=== PATIENT | female | born 1960 | race Caucasian/White ===

== ENCOUNTER 2020-07-07 12:05 | Outpatient (CLI) | payer OTHER, SELFPAY ==
--- NOTE | ~2020-07-07 | MM_ITS ---
EXAMINATION: MM scrn giuliano implant BI w cecilia HISTORY: Screening mammogram TECHNIQUE: Craniocaudal and mediolateral oblique 3-D tomosynthesis images with implant displacement a nd synthetic 2-D images were generated. Craniocaudal and mediolateral oblique views of the breasts wi thout implant displacement were obtained using full field digital mammography. CAD analysis was submi tted and interpreted. COMPARISON: Comparison to multiple prior studies sequentially, with oldest reviewed study dated 03/22. BREAST PARENCHYMAL COMPOSITION: There are scattered areas of fibroglandular density. FINDINGS: There are subpectoral breast implants. There is no evidence of suspicious mass, calcificati on, or architectural distortion to suggest malignancy in either breast. There has been no suspicious interval change. IMPRESSION: 1. No mammographic evidence of malignancy. 2. Recommend routine screening mammography in one year. BI-RADS Category 1: Negative Reviewed, dictated and finalized at location [facility]
== END 2020-07-07 12:06 | disposition home or self-care (01) ==
LOC: ANHIMG 12:09
PROVIDERS: PCP Family Medicine; Visit Provider Family Medicine
DX: Z12.31 Encounter for screening mammogram for malignant neoplasm of breast (principal)
CPT/HCPCS: 77063; 77067

== ENCOUNTER 2021-09-22 15:23 | Observation (INO) | payer OTHER, SELFPAY ==
[2021-09-22] VITALS (29 sets, daily range): BP systolic 114–143; BP diastolic 76–97; PULSE 87–128; RESP 8–24; TEMP 36.1–36.8; O2SAT 91–100; BMI 28.8
--- NOTE | 2021-09-22 15:47 | ECG_ITS ---
Measurements Intervals [place] Rate: 116 P: 63 NE: 164 QRS: 39 QRSD: 94 T: 54 QT: 321 QTc: 447 Interpretive Statements SINUS TACHYCARDIA POSSIBLE LEFT ATRIAL ENLARGEMENT ST-T WAVE ABNORMALITY IN ANTEROLAT/INF LEADS- CONSIDER ISCHEMIA ABNORMAL ECG Electronically Signed On 09-22-2021 16:19:01 CDT by Rajesh Diane D.O.
[2021-09-22 15:58] LABS: Basophils Percent Auto 0.3 % (0.2-1.2); Eosinophils Absolute Auto 0.1 K/mm3 (0-0.3); Eosinophils Percent Auto 1.8 % (0-4.4); Hematocrit 48.3 % (37.0-47.0); Hemoglobin 17.6 g/dL (12.0-15.0); Immature Granulocyte Absolute 0.02 K/mm3 (0.00-0.031); Immature Granulocyte Percent A 0.3 % (0-0.5); Lymphocytes Absolute Auto 3.36 K/mm3 (0.9-3.2); Lymphocytes Percent Auto 45.8 % (18.3-44.2); Mean Corpuscular HGB Conc 36.4 g/dl (32-36); Mean Corpuscular Hemoglobin 32.4 pg (26-34); Mean Corpuscular Volume 88.8 fl (80-100); Monocytes Absolute Auto 0.7 K/mm3 (0.1-0.6); Monocytes Percent Auto 10.1 % (2.6-8.5); Neutrophils Absolute Auto 3.1 K/mm3 (1.3-6.7); Neutrophils Percent Auto 41.7 % (45.5-73.1); Platelet Count Result 292 k/mm3 (150-375); Red Blood Count 5.44 M/mm3 (4.2-5.4); Red Cell Distribution Width 12.4 % (11.5-14.5); White Blood Count 7.3 K/mm3 (4.5-10.0)
[2021-09-22 16:14] LABS: Alanine Aminotransferase 39 U/L (4-35); Albumin Level 5.6 g/dL (3.5-5.1); Alkaline Phosphatase 63 U/L (38-126); Anion Gap 17 mmol/L (8-16); Aspartate Amino Transferase 51 U/L (14-36); Bilirubin,Total 0.7 mg/dL (0.2-1.3); Blood Urea Nitrogen 33 mg/dL (7-17); Carbon Dioxide 22 mmol/L (22-30); Chloride 97 mmol/L (98-107); Estimated CRCL calculation 62 ml/min; Estimated Glomerular Filt Rate 56; Glucose 139 mg/dL (65-110); Lipase 39 U/L (23-300); Potassium 2.8 mmol/L (3.4-5.0); Sodium 136 mmol/L (137-145)
--- NOTE | 2021-09-22 17:08 | ED.NAVMDI ---
HPI - Nausea/Vomiting/Diarrhea General Chief complaint: Nausea/Vomiting/Diarrhea Stated complaint: stomach flu Time Seen by Provider: 09/22/21 16:49 History of Present Illness HPI Narrative: 60-year-old female with a history of nonischemic cardiomyopathy (on Coreg, follows with [facility]), HTN, here for evaluation of nausea, vomiting, diarrhea for the past 3 days. Patient states her daughter has the same symptoms. She states she is unable to tolerate any p.o. including her medications for the past 3 days, and reports vomiting yellow emesis after every p.o. trial. She denies blood in her vomit or stool. She is also reporting some intermittent epigastric discomfort and cramping, improved after vomiting. No recent antibiotic use. Denies syncope, lightheadedness, fevers, chills. Related Data Allergies Allergy/AdvReac Type Severity Reaction Status Date / Time hydrochlorothiazide [Dyazide] Allergy Unknown Skin Verified 04/08/21 13:46 Reaction minocycline Allergy Unknown Unknown Verified 04/08/21 13:46 Penicillins Allergy Unknown allergy Verified 04/08/21 13:46 Sulfa (Sulfonamide Allergy Unknown Unknown Verified 04/08/21 13:46 Antibiotics) triamterene Allergy Unknown Skin Verified 04/08/21 13:46 Reaction Review of Systems Review of Systems: Gen: Denies fevers or chills Eyes: Denies eye pain or visual change ENT: Denies congestion Respiratory: Denies shortness of breath or cough CV: Denies chest pain or palpitations GI: Reports abdominal pain nausea, emesis and diarrhea : denies burning, urgency, frequency or hematuria Musculoskeletal: Denies back pain or muscle pain Neuro: Denies numbness, tingling, weakness or focal weakness Skin: Denies rash Except as documented, all other systems reviewed and negative All systems reviewed & are unremarkable except as noted in HPI and below [facility] Past Medical History Medical History Obesity (BMI 30.0-34.9) Ventricular hypertrophy Surgical History Surgical History H/O bilateral breast implants (~2004) H/O: hysterectomy (~1998) S/P cholecystectomy (~1986) Family History Family History Sibling Diabetes mellitus Father Patient's father is Other Family history of mental disorder Social History Social History Smoking status: Former smoker Alcohol intake: current Drinks per week: 2 Substance use: never Spiritual care concerns: No Exam Narrative: APPEARANCE: Uncomfortable appearing. Head: normocephalic and atraumatic. EYES: PERRLA/EOMI, conjunctivae clear NOSE: No nasal drainage EARS: External ear normal in appearance THROAT: Oropharynx is clear. Mucous membranes are moist. NECK: Supple. No adenopathy, no masses. RESPIRATORY: Airway patent, respirations nonlabored. Clear to auscultation bilaterally, no rales, rhonchi, wheezing. CARDIOVASCULAR: Regular rate and rhythm without murmurs, rubs, or gallops. ABDOMINAL: Normoactive bowel sounds. Soft, nontender, nondistended. No rebound tenderness or guarding. MUSCULOSKELETAL: Extremities are warm and well-perfused. Moves all extremities well. No edema. NEURO: Normal speech. No focal neurologic deficits. SKIN: Skin is warm and dry. No rashes. PSYCHIATRIC: Normal affect/mood. Course Course Emergency Course: Spoke with Dr. Cuenca, patient's PCP, who agrees with plan for admission. Patient rechecked, feeling much better, requesting ice chips. Updated on status. Vital Signs Vital signs: Vital Signs Temperature 97.5 F L 09/22/21 15:44 Pulse Rate 128 H 09/22/21 15:44 Respiratory Rate 20 09/22/21 15:44 Blood Pressure 123/87 09/22/21 15:44 Pulse Oximetry 94 09/22/21 15:44 Temperature 97 F L 09/22/21 22:49 Pulse Rate 89
[2021-09-22] MEDS: ONDANSETRON INJ 4 MG/2 ML VIAL IV PUSH (17:42)
[2021-09-22] MEDS: POTASSIUM CHLORIDE INJ 40 MEQ in SODIUM CHLORIDE 0.9% IV 500 ML 130 MEQ IVPB (18:01)
[2021-09-22 18:35] LABS: Appearance Urine Slightly Cloudy (Clear); Bilirubin Urine 1+ (Negative); Blood Urine Trace-lysed (Negative); Color Urine Yellow (Yellow); Glucose Urine UA Negative (Negative); Ketones Urine Negative (Negative); Leukocyte Esterase Ur Negative LEU/UL (Negative); Nitrate Urine Negative (Negative); Protein Urine 3+ mg/dL (Negative); Specific Grav Ur >= 1.030 (1.001-1.035); Urobilinogen Urine 0.2 mg/dL (<2.0)
[2021-09-22 18:40] LABS: Mucus Urine Moderate /lpf; Squamous Epithelial Cell Urine Few /hpf (Few)
[2021-09-22 18:44] LABS: Add Urine Microscopic? YES
[2021-09-22 19:12] LABS: SARS-CoV-2 RNA PCR Negative
[2021-09-22 19:35] LABS: Magnesium 2.1 mg/dL (1.6-2.3)
--- NOTE | 2021-09-22 20:32 | PM.IMHP ---
H&P: HPI History of Present Illness Date/Time: 09/22/21 20:32 Chief Complaint: Nausea vomiting diarrhea Narrative: This is a 60-year-old female with past medical history significant for hypertension, hypothyroidism, nonischemic cardiomyopathy. Patient presents to the emergency room due to intractable, nausea, vomiting, diarrhea for about a week or so according to patient her daughter hearted earlier on and believes does how she got it. Patient denies any fevers, chills, rigors, cough, sputum production, shortness of breath, chest pain, PND, orthopnea, leg swelling, calves pain, she feels fatigue and she has not been able to eat in the last few days or so has not been able to keep anything down. Preliminary workup was significant for a potassium of 2.8. Patient has been admitted for further evaluation management and treatment.. Review of Systems Review of Systems: Nausea, vomiting, diarrhea. Constitutional: Constitutional: Denies chills, Denies fatigue, Denies fever(s), Reports lethargy, Denies malaise, Denies night sweats and Reports weakness Eyes: Eyes: Denies change in vision ENT: Denies dysphagia, Denies vertigo, Denies nasal congestion, Denies nasal discharge and Denies nasal obstruction Cardiovascular: Cardiovascular: Denies pedal edema, Denies leg edema, Denies radiating jaw, neck or arm pain, Denies palpitations and Denies dyspnea on exertion Respiratory: Respiratory: Denies cough, Denies excessive phlegm production and Denies dyspnea Gastrointestinal: Gastrointestinal: Denies abdominal pain, Denies dyspepsia, Denies heartburn, Reports diarrhea, Reports nausea and Reports vomiting Genitourinary: Genitourinary: Denies dysuria Musculoskeletal: Musculoskeletal: Denies back pain, Denies arthralgias, Denies joint swelling and Denies muscle weakness Integumentary/Breasts: Skin/Breast: Denies rash Neurologic: Denies focal weakness and Denies Sensory deficit (Neuro) Psychiatric: Psychiatric: Reports no additional psychiatric complaints and Reports as per HPI Endocrine: Endocrine: Denies cold intolerance, Denies fatigue, Denies flushing, Denies heat intolerance, Denies polyphagia, Denies polydipsia and Denies palpitations Hematologic/Lymphatic: Hematologic/Lymphatic: Reports no additional hematologic/lymphatic complaints and Reports as per HPI Allergic/Immunologic: Allergic/Immunologic: Reports no additional allergic/immunologic complaints and Reports as per HPI [facility] Past Medical History Medical History Obesity (BMI 30.0-34.9) Ventricular hypertrophy Surgical History Surgical History H/O bilateral breast implants (~2004) H/O: hysterectomy (~1998) S/P cholecystectomy (~1986) Family History Family History Sibling Diabetes mellitus Father Patient's father is Other Family history of mental disorder Social History Social History Smoking status: Former smoker Alcohol intake: current Drinks per week: 2 Substance use: never Spiritual care concerns: No Meds Home Medications and Allergies Home Medications Medication Instructions Recorded Confirmed Type indapamide 1.25 mg tablet 1.25 mg PO BID #180 tablet 09/17/20 09/22/21 Rx levothyroxine 125 mcg tablet See Rx Instructions .ROUTE 06/20/21 09/22/21 Rx .COMPLEX #90 tablet carvedilol phosphate 80 mg See Rx Instructions .ROUTE 07/05/21 09/22/21 Rx capsule,[id number] multiphase .COMPLEX #90 cap telmisartan 40 mg tablet 40 mg PO DAILY #90 tablet 07/11/21 09/22/21 Rx fluoxetine 20 mg/5 mL (4 mg/mL) See Rx Instructions .ROUTE 09/12/21 09/22/21 Rx oral solution .COMPLEX #450 ml Allergies Allergy/AdvReac Type Severity Reaction Status Date / Time hydrochlorothiazide [Dyazide] Allergy
[2021-09-22] MEDS: SODIUM CHLORIDE 0.9% IV 1,000 ML 150 ML IV CONT (21:31)
--- NOTE | 2021-09-22 22:49 | ADMGEN ---
This patient, Pinky Mayo, was admitted to 2 Medical Room 260-01. Patient/family oriented to hospital policies and general routines including ID bracelet, bed and alarms, visiting hours, pain management, procedures, bathroom and other care routines, personal items, smoking policy, room service/diet, and visiting hours. Information on how to activate the Rapid Response Team has been discussed. Patient/Family are encouraged to report perceived risks to care and to ask questions if they do not understand what they are told or what they should do.
[2021-09-23] VITALS: PULSE 89
[2021-09-23 04:00] VITALS: PULSE 84
[2021-09-23 04:08] VITALS: BP 104/66; PULSE 84; RESP 18; TEMP 36.9; O2SAT 97
[2021-09-23 08:00] VITALS: PULSE 87
--- NOTE | 2021-09-23 08:41 | PM.DS ---
DS: Admitting Diagnosis Discharge Date 09/23/2021 Admitting Diagnosis Nausea vomiting diarrhea DS: Discharge Diagnosis Discharge Diagnosis (1) Hypokalemia: Code(s): E87.6 - Hypokalemia Status: Acute Assessment and Plan: Most likely related to diarrhea secondary to gastroenteritis placed follow-up with PCP in 1 week repeat CMP in 1 week as outpatient (2) Essential (primary) hypertension: Code(s): I10 - Essential (primary) hypertension Status: Acute Assessment and Plan: Resume home medication as tolerated (3) Intractable nausea and vomiting: Code(s): R11.2 - Nausea with vomiting, unspecified Status: Acute Assessment and Plan: Most likely related to gastroenteritis most likely viral resolved advance diet as tolerated follow-up with PCP encourage oral hydration (4) Diarrhea: Code(s): R19.7 - Diarrhea, unspecified Status: Acute Assessment and Plan: Supportive care as above (5) Ventricular hypertrophy: Code(s): I51.7 - Cardiomegaly Status: Acute Assessment and Plan: Stable Continue to monitor DS: Summary Hospital Course Hospital Course: 60 years old female with past medical history of hypertension nonischemic cardiomyopathy presented to the hospital with nausea vomiting diarrhea started 1 week ago patient was found to have acute probably viral gastroenteritis associated with hypo kalemia and dehydration treated with IV fluid potassium was replaced also UA was done shows leukocytosis microscopic hematuria most likely related to dehydration patient denies any symptom for UTI follow-up with PCP follow up on the results of final culture Time Spent with Patient Time attestation: Total time spent providing and/or coordinating discharge services: 25 minutes Exam Narrative: Alert Chest no wheeze crackles Abdomen nontender nondistended CVS S1 + S2 Lower extremity edema DS: Data Data Completed and Pending Labs on day of discharge: Labs from last 24 hours 09/22/21 09/22/21 09/22/21 18:03 18:03 15:49 WBC RBC Hgb Hct MCV MCH MCHC RDW Plt Count MPV Immature Gran % (Auto) Neut % (Auto) Lymph % (Auto) Ransom % (Auto) Eos % (Auto) Baso % (Auto) Lymph # (Auto) [place]ansom # (Auto) Eos # (Auto) Baso # (Auto) Abs Immat Gran (auto) Absolute Neuts (auto) Absolute Nucleated RBC Nucleated RBC % Sodium Potassium Chloride Carbon Dioxide Anion Gap BUN Creatinine Estim Creat Clear Calc Estimated GFR Glucose Calcium Magnesium 2.1 Total Bilirubin AST ALT Alkaline Phosphatase Total Protein Albumin Lipase Urine Color Yellow Urine Appearance Slightly cloudy Urine pH 6.0 Ur Specific [place] >= 1.030 Urine Protein 3+ H Urine Glucose (UA) Negative Urine Ketones Negative Ur Blood (Man) Trace-lysed Urine Nitrate Negative Urine Bilirubin 1+ H Urine Urobilinogen 0.2 Leukocyte Esterase Rfl Negative Urine RBC 3-5 H Urine WBC 10-15 H Ur Squamous Epith Cells Few Hyaline Casts 10-14 H Urine Mucus Moderate H SARS-CoV-2 RNA (RT-PCR) Negative 09/22/21 09/22/21 15:49 15:49 WBC 7.3 RBC 5.44 H Hgb 17.6 H Hct 48.3 H MCV 88.8 MCH 32.4 MCHC 36.4 H RDW 12.4 Plt Count 292 MPV 9.0 Immature Gran % (Auto) 0.3 Neut % (Auto) 41.7 L Lymph % (Auto) 45.8 H Ransom % (Auto) 10.1 H Eos % (Auto) 1.8 Baso % (Auto) 0.3 Lymph # (Auto) 3.36 H [place] # (Auto) 0.7 H Eos # (Auto) 0.1 Baso # (Auto) 0.0 Abs Immat Gran (auto) 0.02 Absolute Neuts (auto) 3.1 Absolute Nucleated RBC 0.0 Nucleated RBC % 0.0 Sodium 136 L Potassium 2.8 L* Chloride 97 L Carbon Dioxide 22 Anion Gap 17 H BUN 33 H Creatinine 1.00 Estim Creat Clear Calc 62 Estimated GFR 56 L Glucose 139 H Calcium 9.0 Magnesium Total Bi
[2021-09-23 08:43] VITALS: BP 118/75; PULSE 84; RESP 16; TEMP 36.5; O2SAT 92
[2021-09-23 08:56] LABS: Basophils Percent Auto 0.3 % (0.2-1.2); Eosinophils Percent Auto 0.1 % (0-4.4); Hematocrit 44.6 % (37.0-47.0); Hemoglobin 15.8 g/dL (12.0-15.0); Immature Granulocyte Absolute 0.01 K/mm3 (0.00-0.031); Immature Granulocyte Percent A 0.1 % (0-0.5); Lymphocytes Absolute Auto 4.04 K/mm3 (0.9-3.2); Lymphocytes Percent Auto 56.4 % (18.3-44.2); Mean Corpuscular HGB Conc 35.4 g/dl (32-36); Mean Corpuscular Volume 90.5 fl (80-100); Monocytes Absolute Auto 0.7 K/mm3 (0.1-0.6); Monocytes Percent Auto 9.9 % (2.6-8.5); Neutrophils Absolute Auto 2.4 K/mm3 (1.3-6.7); Neutrophils Percent Auto 33.2 % (45.5-73.1); Platelet Count Result 247 k/mm3 (150-375); Red Blood Count 4.93 M/mm3 (4.2-5.4); Red Cell Distribution Width 12.6 % (11.5-14.5); White Blood Count 7.2 K/mm3 (4.5-10.0)
[2021-09-23] MEDS: POTASSIUM CHLORIDE 20 MEQ TABLET 40 MEQ PO (08:57)
[2021-09-23 09:12] LABS: Alanine Aminotransferase 32 U/L (4-35); Albumin Level 4.7 g/dL (3.5-5.1); Alkaline Phosphatase 50 U/L (38-126); Anion Gap 11 mmol/L (8-16); Aspartate Amino Transferase 37 U/L (14-36); Bilirubin,Total 0.9 mg/dL (0.2-1.3); Blood Urea Nitrogen 24 mg/dL (7-17); Calcium 8.3 mg/dL (8.4-10.2); Carbon Dioxide 21 mmol/L (22-30); Chloride 102 mmol/L (98-107); Estimated CRCL calculation 99 ml/min; Estimated Glomerular Filt Rate > 60; Glucose 96 mg/dL (65-110); Potassium 3.2 mmol/L (3.4-5.0); Sodium 134 mmol/L (137-145)
== END 2021-09-23 11:05 | disposition home or self-care (01) ==
LOC: ANHED 17:37 → ANH2MED 09-23 02:35 → ANH3MEDSUR 09-27 09:53
PROVIDERS: Emergency Medicine; Physician Assistant; Admitting Provider Hospitalist; Emergency Provider Emergency Medicine; PCP Family Medicine; Visit Provider Internal Medicine
DX: R11.2 Nausea with vomiting, unspecified (principal); R19.7 Diarrhea, unspecified; E87.6 Hypokalemia; I10 Essential (primary) hypertension; E03.9 Hypothyroidism, unspecified; I42.8 Other cardiomyopathies; I51.7 Cardiomegaly; Z20.822 Contact with and (suspected) exposure to COVID-19
CPT/HCPCS: 36415; 80053; 81001; 83690; 83735; 85025; 87086; 87088; 93005; 96374; 96375; 99285; A9270; C9803; G0378; J2405; J7030; J7040; U0003; U0005

== ENCOUNTER 2021-10-25 09:24 | Outpatient (RCR) | payer OTHER, SELFPAY ==
[2021-10-25 11:34] VITALS: BP 150/84; PULSE 68; RESP 20; TEMP 36.3; O2SAT 100
[2021-10-25] MEDS: FAMOTIDINE 20 MG TABLET PO (11:41)
[2021-10-25] MEDS: ACETAMINOPHEN 325 MG TABLET 650 MG PO (11:41)
[2021-10-25] MEDS: diphenhydrAMINE HCl CAP 25 MG CAPSULE PO (11:41)
[2021-10-25] MEDS: BEBTELOVIMAB 175 MG/2 ML VIAL IV PUSH (12:01)
[2021-10-25 12:42] VITALS: BP 123/75; PULSE 60; RESP 20; O2SAT 97
== END 2021-10-25 16:00 ==
LOC: AMCINF 09:24
PROVIDERS: Referring Provider Family Medicine; Visit Provider Internal Medicine Hematology & Oncology
DX: U07.1 COVID-19 (principal); I10 Essential (primary) hypertension; I25.10 Atherosclerotic heart disease of native coronary artery without angina pectoris
CPT/HCPCS: A9270; M0222; Q0222

== ENCOUNTER 2023-02-22 15:28 | Outpatient (CLI) | payer OTHER, SELFPAY ==
--- NOTE | ~2023-02-22 | MM_ITS ---
EXAMINATION: MM scrn giuliano implant BI w cecilia HISTORY: Screening mammogram TECHNIQUE: Craniocaudal and mediolateral oblique 3-D tomosynthesis images with implant displacement a nd synthetic 2-D images were generated. Craniocaudal and mediolateral oblique views of the breasts wi thout implant displacement were obtained using full field digital mammography. CAD analysis was submi tted and interpreted. COMPARISON: 07/07/2020, 07/08/2018, 06/21/2017 BREAST PARENCHYMAL COMPOSITION: There are scattered areas of fibroglandular density. FINDINGS: There is no evidence of suspicious mass, calcification, or architectural distortion to sugg est malignancy in either breast. There has been no suspicious interval change. IMPRESSION: 1. No mammographic evidence of malignancy. 2. Recommend routine screening mammography in one year. BI-RADS Category 1: Negative Reviewed, dictated and finalized at location A.
== END 2023-02-22 15:29 | disposition home or self-care (01) ==
PROVIDERS: PCP Family Medicine; Visit Provider Family Medicine
DX: Z12.31 Encounter for screening mammogram for malignant neoplasm of breast (principal)
CPT/HCPCS: 77063; 77067

== ENCOUNTER 2025-01-15 02:19 | Day surgery (SDC) | payer OTHER, SELFPAY ==
[2025-01-14 12:06] VITALS: BMI 29.2
[2025-01-15] VITALS (21 sets, daily range): BP systolic 114–138; BP diastolic 69–93; PULSE 72–88; RESP 12–20; TEMP 36.4; O2SAT 94–98
--- OUTSIDE RECORDS SUMMARY | 2025-01-15 02:22 | XMS_ITS | Encounter Summary ---
Author Organization [facility] Address [address] [place] [address] Care Team Providers Care Dye Reel Operator Name Role Phone Ford Cuenca MD Primary Care Provider [phone] Reason for Referral * Procedure (Routine) - Closed Specialty Diagnoses / Procedures Referred By Contjosé t Referred To Contact Cardiology Diagnoses Abnormal stress ECG Ford Jesus MD [address] [facility] [address] [place] [id number] Phone: tel: fax: [facility] Cardiology [address] [place] [id number] Phone: tel: fax: Referral ID Status Reason Start Date Expiration Date V isits Requested Visits Authorized [id number] Closed Specialty Services Required 01/02/2025 02/16/2025 1 1 Question Answer Please select the performing region: [facility] [[id number]] Please select the performing department: [facility] [[id number]] # of visits: 1 Comments PROCEDURE/TEST ORDERED:[facility] LOCATION: DATE OF SERVICE:01/15 INSURANCE:[facility] DIAGNOSIS:abn stress echo ORDERING PROVIDER:Eric ADDITIONAL DETAILS: Reason for Visit * Reason Onset Date Comments [facility] 01/02/2025 Encounter Details Date Type Department Care Team (Late st Contact Info) Description 01/02/2025 Telephone [facility] Cardiology [address] [place] [address] Ford Jesus MD [address] [place] [address] [facility] Social History Tobacco Use Types Packs/Day Years Used Date Smoking Tobacco: Former Cigarettes Q uit: 01/10/1976 Smokeless Tobacco: Never Alcohol Use Standard Drinks/Week Comments Yes 2 (1 standard drink = 0.6 oz pur e alcohol) monthly Comments Unknown Sex and Gender Information Value Date Recorded Sex Assigned at Not on file Legal Sex Female 9:18 PM [employer] Gender Identity Not on file Sexual Orientation Not on file documented as of this encounter Ordered Prescriptions Prescription Sig Dispense Quantity Refills Last Filled Start Date End Date rosuvastatin (CRESTOR) 20 mg tablet Take 1 tablet (20 mg total) by mouth daily 30 tablet 11 01/02/2025 01/02/2026 documented in this encounter Miscellaneous Notes * Telephone Encounter - Amado Singleton RN - 01/14/2025 11:28 AM CDT Forwarding to Varsha for assistance. * Telephone Encounter - Tigist Morales - 01/14/2025 11:01 AM CDT Karen from calling regarding the PA for the [facility] scheduled tomorrow 01/15. States that she does not have any information regarding the PA and if it has been approved. Please advise. Thank you. CPT Code: 59783 * Addendum Note - Amado Singleton RN - 01/02/2025 11:58 AM CDTAddended by: AMADO SINGLETON on: 01/02/2025 11:58 AM Modules accepted: Orders * Telephone Encounter - Amado Singleton RN - 01/02/2025 11:09 AM CDT CHRISTIANO and ERIC Hernandez [facility] scheduled pt for LHC with [facility] at for abn stress echo on 01/15 at 0830. Reviewed instructions with pt and spouse in office and they verbalized understanding. documented in this encounter Plan of Treatment Scheduled Referrals Name Type Priority Associated Diagnoses Order Schedule Ambulatory referral to Cardiology Outpatient Referral Routine Abnormal stress ECG Expected: 01/09/2025 (Approximate), Expires: 01/02/2026 documented as of this encounter Visit Diagnoses Diagnosis Abnormal stress ECG- Primary documented in this encounter Care Teams Dye Reel Operator Relationship Specialty Start Date End Date Ford Cuenac MD PCP - General 08/18/16 documented as of this encounter
--- OUTSIDE RECORDS SUMMARY | 2025-01-15 02:22 | XMS_ITS | Clinical Summary ---
Author Organization [facility] [address] [place] [address] [address] [facility] [address] [place] [address] Care Team Providers Care Pesticide Use Medical Coordinator Name Role Phone Ford Cuenca MD Primary Care Provider [phone] Allergies Active Allergy Reactions Criticality Noted Date Comments Penicillins Rash Medium Medications indapamide (LOZOL) 1.25 mg tablet take 1 tablet (1.25MG) by oral route every day in the morning 0 08/19/2012 Active levothyroxine (SYNTHROID, LEVOTHROID) 125 mcg tablet take 1 tablet by oral route every day 0 0 08/03/2016 Active telmisartan (MICARDIS) 40 mg tablet Take 1 tablet (40 mg total) by mouth daily Active COREG CR 80 mg 24 hr capsule Take 1 tablet by mouth daily. 06/05/2017 Active rosuvastatin (CRESTOR) 20 mg tablet Take 1 tablet (20 mg total) by mouth daily 30 tablet 11 01/02/2025 Active Active Problems Problem Noted Date Diagnosed Date Cardiomyopathy, idiopathic 03/08/2017 Bankart lesion 10/06/2013 Encounters Date Type Department Care Team Description 01/02/2025 9:15 AM CDT Ancillary Procedure [facility] Cardiology [address] [place] [phone] Cardiomyopathy, idiopathic 01/02/2025 Telephone [facility] Cardiology [address] [facility] [address] [place] [phone] Ford Jesus MD [facility] 01/01/2025 9:45 AM CDT Office Visit [facility] Cardiology [address] [place] [address] [address] [place] [phone] Ford Jesus MD Cardiomyopathy, idiopathic (Primary Dx); Need for lipid screening from Last 3 Months Surgical History Surgery Date Site/Laterality Comments CHOLECYSTECTOMY July 1987 HYSTERECTOMY November 1997 Medical History Medical History Date Comments Cardiomyopathy Hypertension Heart disease Family History Medical History Relation Name Comments Heart disease Father Tatiana pop mother Relation Name Status Comments Father Tatiana pop mother Social History Tobacco Use Types Packs/Day Years Used Date Smoking Tobacco: Former Cigarettes Q uit: 01/10/1976 Smokeless Tobacco: Never Tobacco Cessation:Counseling Given: Not Answered Alcohol Use Standard Drinks/Week Comments Yes 2 (1 standard drink = 0.6 oz pur e alcohol) monthly Comments Unknown Sex and Gender Information Value Date Recorded Sex Assigned at Not on file 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 Gender Identity Not on file Sexual Orientation Not on file Obstetrics History Last Filed Vital Signs Vital Sign Reading Time Taken Comments Blood Pressure 104/60 01/01/2025 9:52 AM CDT Pulse 74 01/01/2025 9:52 AM CDT Temperature 36.9 C (98.4 F) 06/01/2019 11:42 AM CIRCUIT BOARD ASSEMBLER Respiratory Rate 15 06/01/2019 3:00 PM CIRCUIT BOARD ASSEMBLER Oxygen Saturation 97% 01/01/2025 9:52 AM CDT Inhaled Oxygen Concentration - - Weight 92.7 kg (204 lb 6.4 oz) 01/01/2025 9:52 A M CDT Height 175.3 cm (5' 9) 01/01/2025 9:52 AM CDT Body Mass Index 30.18 01/01/2025 9:52 AM CDT Plan of Treatment Health Maintenance Due Date Last Done Comments Breast Cancer Screening-Mammogram 1960 Colon Cancer Screening-Colonoscopy 1960 Depression Screening 1960 Fall Risk Assessment 1960 Hepatitis C Screening 1960 Osteoporosis Screening-Bone Density Scan 1960 Hepatitis B Screening 09/26/1977 Pneumococcal vaccine 65+ (1 of 1 - PCV) 09/26/2009 Zoster Vaccine (1 of 2) 09/26/2009 Well Visit 65+ 09/26/2024 Influenza Vaccine (#1) 2025 9, 06/03/2018, 06/12/2017 DTaP/Tdap/Td Vaccine (2 - Td or Tdap) 06/28/202712/2017 Procedures Procedure Name Priority Date/Time Associated Diagnosis Comments STRESS ECHO EXERCISE W DOPPLER/CF W CONTRAST Routine 01/02/2025 10:53 AM CDT Cardiomyopathy, idiopathic POCT LIPID PANEL Routine 01/01/2025 10:3 5 AM CDT Need for lipid screening from Last 3 Months Results * STRESS ECHO EXERCISE W DOPPLER/CF W CONTRAST (01/02/2025 10:53 AM CDT) Anatomical Region Laterality Modality Ultrasound 01/02/2025 9:16 AM CDT Narrative 01/02/2025 12:37 PM CDT [facility] [address] [facility] [address] [place] [id number] [address] [facility] [address], [place] [address] P:[phone] P:[phone] Echocardiographic Report Patient Name: PINKY RIVERA A : 1960 Study Date: 01/02/2025 9:16:49 AM Gender: F Blow Torch Operator: Hilda Kamara)(CT), [facility] Location: [facility] Provider: FORD JESUS Height(Cm): 175 BSA: 2.12 Weight(Kg): 92.5 Heart Rate: 65 BP: 104 / 60 Quality: Good Order Provider: FORD JESUS PROCEDURES: Stress Echo Report: Treadmill stress echocardiogram with Definity contrast. INDICATIONS: Chest Pain, Medications: COREG CR 80 mg 24 hr capsule indapamide (LOZOL) 1.25 mg tablet levothyroxine (SYNTHROID, LEVOTHROID) 125 mcg tablet telmisartan (MICARDIS) 40 mg tablet Carvedilol Stress test monitored by: Corinne Singleton RN I42.9 Idiopathic Cardiomyopathy. FINDINGS: Stress Echo: Protocol - Darrell Protocol. Exercise Time - 7.32 min Baseline Heart Rate - 74 Peak Heart Rate - 148 Predicted Maximal Heart Rate - 155 85% MPHR - 132 Baseline BP - 128/76 Peak BP - 136/78 Rate Pressure Product - METS Achieved - 10.10 Percent Predicted Maximal HR Achieved - 95 % Interpretation Site: Exam was interpreted at [facility]. Performance: Average exercise functional capacity. Hemodynamic Response: Normal blood pressure response. Arrhythmia: No exercise induced arrhythmias. Termination: Leg Fatigue. Resting ECG: Normal EKG. Exercise ECG: Abnormal exercise ECG consistent with ischemia. About 1.[address] depression. Resting LV Function: Normal left ventricular size, normal systolic function, normal wall thickness with no segmental wall motion abnormalities at rest. Definity contrast agent used to visually enhance endocardial wall motion and contractility. Lot Number: [id number]. Post Stress LV Function: These segments of the LV are hypokinetic: apical segment and apical anterior segment. CONCLUSIONS: Protocol - Darrell Protocol. Exercise Time - 7.32 min. Baseline Heart Rate - 74. Peak Heart Rate - 148. Predicted Maximal Heart Rate - 155. 85% MPHR - 132. Baseline BP - 128/76. Peak BP - 136/78. Rate Pressure Product - . METS Achieved - 10.10. Percent Predicted Maximal HR Achieved - 95 %. Normal EKG. Abnormal exercise ECG consistent with ischemia. About 1.[address] depression. Lot Number: [id number]. These segments of the LV are hypokinetic: apical segment and apical anterior segment. ECG evidence of ischemia. Echocardiographic evidence of ischemia. Electronically Signed By: Ford Jesus MD, [facility] 01/02/2025 12:37:23 PM CDT Procedure Note Ford Jesus MD - 01/02/2025 [facility] [address] [facility] [address], [place] [address] [address], [place] [address] P:[phone] P:[phone] Echocardiographic Report Patient Name: PINKY RIVERA A : 1960 Study Date: 01/02/2025 9:16:49 AM Gender: F Blow Torch Operator: Hilda Ferrell (Lea)(CT), [facility] Location: [facility] Provider: FORD JESUS Height(Cm): 175 BSA: 2.12 Weight(Kg): 92.5 Heart Rate: 65 BP: 104 / 60 Quality: Good Order Provider: FORD JESUS PROCEDURES: Stress Echo Report: Treadmill stress echocardiogram with Definity contrast. INDICATIONS: Chest Pain, Medications: COREG CR 80 mg 24 hr capsule indapamide (LOZOL) 1.25 mg tablet levothyroxine (SYNTHROID, LEVOTHROID) 125 mcg tablet telmisartan (MICARDIS) 40 mg tablet Carvedilol Stress test monitored by: Corinne Singleton RN I42.9 Idiopathic Cardiomyopathy. FINDINGS: Stress Echo: Protocol - Darrell Protocol. Exercise Time - 7.32 min Baseline Heart Rate - 74 Peak Heart Rate - 148 Predicted Maximal Heart Rate - 155 85% MPHR - 132 Baseline BP - 128/76 Peak BP - 136/78 Rate Pressure Product - [id number] METS Achieved - 10.10 Percent Predicted Maximal HR Achieved - 95 % Interpretation Site: Exam was interpreted at [facility]. Performance: Average exercise functional capacity. Hemodynamic Response: Normal blood pressure response. Arrhythmia: No exercise induced arrhythmias. Termination: Leg Fatigue. Resting ECG: Normal EKG. Exercise ECG: Abnormal exercise ECG consistent with ischemia. About 1.[address] depression. Resting LV Function: Normal left ventricular size, normal systolic function, normal wallthickness with no segmental wall motion abnormalities at rest. Definity contrast agent usedto visually enhance endocardial wall motion and contractility. Lot Number: [id number]. Post Stress LV Function: These segments of the LV are hypokinetic: apical segment and apicalanterior segment. CONCLUSIONS: Protocol - Darrell Protocol. Exercise Time - 7.32 min. Baseline Heart Rate -74. Peak Heart Rate - 148. Predicted Maximal Heart Rate - 155. 85% MPHR - 132. BaselineBP - 128/76. Peak BP - 136/78. Rate Pressure Product - [id number]. METS Achieved - 10.10.Percent Predicted Maximal HR Achieved - 95 %. Normal EKG. Abnormal exercise ECG consistent with ischemia. About 1.[address] depression. Lot Number: [id number]. These segments of the LV are hypokinetic: apical segment and apicalanterior segment. ECG evidence of ischemia. Echocardiographic evidence of ischemia. Electronically Signed By: Ford Jesus MD, [facility] 01/02/2025 12:37:23 PM CDT Ford eJsus MD CV ECHO PROCEDURES Final Result * (ABNORMAL) POCT lipid panel (01/01/2025 10:35 AM CDT) Cholesterol, POC 240 <200 MG/DL HDL, POC 52 >=40 mg/dL Triglycerides, POC 280(A) <=149 mg/dL LDL Cholesterol POC 132(A) <=129 mg/dL Chol/HDL Ratio, POC 2.6 NONE Non-HDL Cholesterol, POC 188 NONE mg/dL Cholesterol Total, POC 240(A) 30 - 199 mg/dL Capillary blood 01/01/2025 1 0:35 AM CDT Ford Jesus MD POINT OF CARE TEST ORDER MAKENZIE Final Result from Last 3 Months Insurance [facility] PPO [facility] HMO/PPO Address: [address] [place] [address] [facility] CHOICE PLUS Care Teams Pesticide Use Medical Coordinator Relationship Specialty Start Date End Date Ford Cuenca MD PCP - General 08/18/16
--- OUTSIDE RECORDS SUMMARY | 2025-01-15 02:22 | XMS_ITS | Encounter Summary ---
Author Organization [facility] Address [address] [address] Care Team Providers Care Engineering Professor Name Role Phone Ford Cuenca MD Primary Care Provider [phone] Encounter Details Date Type Department Care Team (Late st Contact Info) Description 08/22/2016 Orders Only [facility] ProviderJayda MD [address] [place] [id number] Social History Tobacco Use Types Packs/Day Years Used Date Smoking Tobacco: Former Cigarettes Q uit: 05/21/1984 Alcohol Use Standard Drinks/Week Comments Yes 0 (1 standard drink = 0.6 oz pur e alcohol) Comments Unknown Sex and Gender Information Value Date Recorded Sex Assigned at Not on file 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 Historical Provider [facility] MARC CARTER Final Result documented in this encounter Visit Diagnoses Not on filedocumented in this encounter Care Teams Engineering Professor Relationship Specialty Start Date End Date Ford Cuenca MD PCP - General 08/18/16 documented as of this encounter
[2025-01-15 07:44] LABS: Hematocrit 42.2 % (37.0-47.0); Hemoglobin 14.5 g/dL (12.0-15.0); Mean Corpuscular HGB Conc 34.4 g/dl (32-36); Mean Corpuscular Hemoglobin 31.9 pg (26-34); Mean Corpuscular Volume 93.0 fl (80-100); Platelet Count Result 256 k/mm3 (150-375); Red Blood Count 4.54 M/mm3 (4.2-5.4); White Blood Count 16.0 K/mm3 (4.5-10.0)
[2025-01-15 07:55] LABS: Anion Gap 10 mmol/L (4-12); Blood Urea Nitrogen 14 mg/dL (7-17); Calcium 9.4 mg/dL (8.4-10.2); Carbon Dioxide 28 mmol/L (22-30); Chloride 100 mmol/L (98-107); Estimated CRCL calculation 81 ml/min; Estimated Glomerular Filt Rate > 60; Glucose 107 mg/dL (65-110); Potassium 3.7 mmol/L (3.4-5.0); Sodium 138 mmol/L (137-145)
[2025-01-15 08:05] LABS: Band Neutrophils Percent 0 % (0-6); Neutrophils Absolute Manual 2.88 K/mm3 (1.3-6.7); Neutrophils Percent Manual 18 % (46-73); Total Cells Counted 100
[2025-01-15 08:06] LABS: Eosinophils Absolute Manual 0.16 K/mm3 (0.02-0.50); Eosinophils Percent Manual 1 % (0-4); Lymphocytes Absolute Manual 12.64 K/mm3 (1.1-4.5); Lymphocytes Percent Manual 79 % (18-44); Monocytes Absolute Manual 0.32 K/mm3 (0.1-0.90); Monocytes Percent Manual 2 % (3-9); Smudge Cells MODERATE
[2025-01-15 08:09] LABS: Schistocytes None Seen
--- NOTE | 2025-01-15 09:03 | WPDHPUPDATE1 ---
History and Physical Update Update Date/Time: 01/15/25 09:03 History and Physical has been reviewed, including an updated exam of the patient. There are NO changes in the patient's condition. Risks, benefits, and alternatives have been discussed and questions answered. Patient agrees to proceed with procedure.
--- NOTE | 2025-01-15 09:03 | WPDMODSED ---
Moderate Sedation Note-Pt Data Patient Data Allergies Allergy/AdvReac Type Severity Reaction Status Date / Time hydrochlorothiazide (Dyazide) Allergy Unknown Skin Verified 01/15/25 07:15 Reaction minocycline Allergy Unknown Unknown Verified 01/15/25 07:15 Penicillins Allergy Unknown allergy Verified 01/15/25 07:15 Sulfa (Sulfonamide Allergy Unknown Unknown Verified 01/15/25 07:15 Antibiotics) triamterene Allergy Unknown Skin Verified 01/15/25 07:15 Reaction Home Medications ?Medication ?Instructions ?Recorded ?Confirmed ?Type valacyclovir 1 gram tablet 2,000 mg (2 x 1 gram) PO Q12H PRN 07/23/24 01/14/25 Rx (Valtrex) HSV #20 tabs carvedilol phosphate 80 mg See Rx Instructions .Route 11/13/24 01/15/25 Rx capsule,[id number] multiphase .COMPLEX #90 caps indapamide 1.25 mg tablet 1.25 mg PO BID #180 tabs 11/20/24 01/15/25 Rx telmisartan 40 mg tablet 40 mg PO DAILY #90 tabs 11/20/24 01/15/25 Rx fluoxetine 20 mg/5 mL (4 mg/mL) See Rx Instructions .Route 12/11/24 01/15/25 Rx oral solution .COMPLEX #450 mL levothyroxine 125 mcg tablet See Rx Instructions .Route 12/11/24 01/15/25 Rx .COMPLEX #90 tabs multivitamin (Daily Multi-Vitamin 1 tablet PO DAILY 12/23/24 01/15/25 History tablet) rosuvastatin 20 mg tablet 20 mg PO DAILY 01/14/25 01/15/25 History Sedation/Anesthesia: No previous sedation/anesthesia problems (including family history). [facility] Past Medical History Medical History Allergic conjunctivitis Mountain sickness Obesity (BMI 30.0-34.9) Ventricular hypertrophy Surgical History Surgical History H/O bilateral breast implants (~2004) S/P cholecystectomy (~1986) H/O: hysterectomy (~1998) Family History Family History Sibling Diabetes mellitus Father Patient's father is Other Family history of mental disorder Social History Social History Social History: Caffeine-1 cup daily Years smoked: 8 Smoking status: Never smoker Tobacco type: cigarettes Alcohol intake: never Drinks per week: 2 Alcohol use details: occasional Substance use: never Substance use type: does not use Lack of Transportation: No Lack of Food: Never True Current Housing: I Have Housing Concerned About Future Housing: No Difficulty Paying Gas/Electric Bills: No Difficulty Paying for Meds: No Currently Unemployed: No Education: Associate Degree Difficulty w/ Childcare or Family Care: No Living arrangements: with family Spiritual care concerns: No Mod Sed Physical Exam Physical Exam Pre Procedural Exam: Normal: Lungs, Heart Size, Heart Rate and Heart Rhythm Hours since solid foods: 12 Hours since liquid intake: 12 Mallampati Classification: class II Internal Medicine - PN: Obj Da Vital Signs Vital Signs: Vital Signs - 24 hr 01/15/25 07:16 Temperature 36.4 C L Pulse Rate 75 Respiratory Rate 16 Blood Pressure 131/86 Pulse Oximetry 96 Oxygen Delivery Room Air Labs 01/15/25 07:26 01/15/25 07:26 Labs: Laboratory Results - last 24 hr 01/15/25 07:26 WBC 16.0 H RBC 4.54 Hgb 14.5 Hct 42.2 MCV 93.0 MCH 31.9 MCHC 34.4 RDW 12.3 Plt Count 256 MPV 9.1 Immature Gran % (Auto) Not Reportable Neut % (Auto) Not Reportable Lymph % (Auto) Not Reportable [place] % (Auto) Not Reportable Eos % (Auto) Not Reportable Baso % (Auto) Not Reportable Lymph # (Auto) Not Reportable [place] # (Auto) Not Reportable Eos # (Auto) Not Reportable Baso # (Auto) Not Reportable Abs Immat Gran (auto) Not Reportable Absolute Neuts (auto) Not Reportable Absolute Nucleated RBC Not Reportable Total Counted 100 Neutrophils % (Manual) 18 L Band Neutrophils % 0 Lymphocytes % (Manual) 79 H Monocytes % (Manual) 2 L Eosinophils % (Manual) 1 Nucleated RBC % Not Reportable Abs Neuts (Manual) 2.88 Abs Lymphs (Manual) 12.64 H Abs Monocytes (Manual) 0.32 Absolute Eos (Manual) 0.16 Atypical Lymphocytes Present Smudge Cells Moderate Platelet Estimate Adequate Schistocytes None seen Sodium 138 Potassium 3.7 Chloride 100 Carbon Dioxide 28 Anion Gap 10 BUN 14 D Creatinine 0.71 Estim Creat Clear Calc 81 Estimated GFR > 60 Glucose 107 Calcium 9.4 ASA Classification/Sedation ASA Classification/Sedation ASA Class: III Emergent: No Risks: Risks, benefits and alternatives explained and patient/family accepted plan for sedation. Patient re-evaluated immediately prior to sedation.
--- NOTE | 2025-01-15 10:29 | P.PCNCC_ITS ---
Cardiac Cath Procedure Note Date of procedure:: 01/15/25 Performing physician:: CATHETERIZATION LABORATORY REPORT Procedure Date: 01/15/2025 Referring Physician: Dr. Jesus Anesthesia: Versed and Fentanyl were ordered and given in my presence at 0921, procedure ended at 1025. Supervision of nurse, Sasha Cunningham monitored moderate sedation with 2mg Versed and 200mcg Fentanyl was provided for 64 minutes. Pre-op Diagnosis: abnormal stress test Post-op Diagnosis: abnormal stress test Procedure(s): Left heart catheterization with coronary angiography Percutaneous coronary intervention, initial vessel Intravascular ultrasound, initial vessel Percutaneous coronary intervention, additional vessel Intravascular ultrasound, additional vessel Access Site: Right radial artery Brief History and Clinical Indications: All risks, benefits and alternatives to left heart catheterization with or without percutaneous coronary intervention was discussed at length with the patient. Risk of complications including but not limited to bleeding, infection, arrhythmia, stroke, worsening kidney function, blood loss, groin hematoma, limb loss, emergency coronary artery bypass grafting, and even were discussed with the patient and all questions were answered. The patient understood and wished to proceed. Time out called, patient name, date of , medical record number, allergies, procedure performed, identify Light Rail Signal Technician, patient and staff member concurred with accurate data, procedure carried on. Findings: LEFT HEART CATHETERIZATION FINDINGS: 1. Left main: The left main coronary artery has luminal irregularities. 2. Left anterior descending: The LAD in its proximal body has diffuse 20% stenosis. The mid LAD has a focal area of 70-80% stenosis. The remainder of the LAD has luminal irregularities. The diagonal branches are free of angiographic high-grade stenosis. 3. Left circumflex: The left circumflex artery is a small caliber vessel free of angiographic stenosis. OM1 is a small caliber vessel with 60-70% stenosis. OM2 is free of angiographic stenosis. 4. Right coronary artery: The RCA is a large dominant vessel with 90% stenosis in the mid body. 5. Left ventricle: A. End-diastolic pressure 22 mmHg. B. LV gram deferred. C. No significant gradient across aortic valve on catheter pullback. 6. Opening AO pressure 90/58 and closing AO pressure 121/76 Description of Procedure: Informed consent signed and placed in the chart. Patient transferred to general labor forklift operator room. Prepped and draped in usual sterile fashion. 2% lidocaine injected subcutaneously in right wrist area. 22-gauge venipuncture catheter used to access the right radial artery with the Seldinger technique. 6-FR slender sheath placed in right radial artery. Nitroglycerin 200mcg, Verapamil 2.5mg, and Heparin 5000U was given intraarterial through the sheath. J wire advanced under fluoroscopy. 5F Ultra diagnostic catheter engaged Left Main Coronary Artery and Right Coronary Artery. Multiple orthogonal angiogram obtained and reviewed. 5F Pigtail catheter crossed aortic valve to obtain LVEDP, LV angiogram deferred. Procedure Description for PCI: Heparin was used for anticoagulation (ACT maintained above 250) Patient loaded with heparin at 70 units/kg. 6F EBU 3.5 guide catheter was used to intubate the LMCA. 0.014 Runthrough coronary wire was passed in to the distal LAD. IVUS was used to assess size along with proximal LAD stenosis. The proximal LAD stenosis was not significant with a MLA >5mm2. The mid LAD was directly stented with a 4.0 x 15mm Neal EVELIO; post dilated with a 4.5 x 8mm NC with excellent angiographic and IVUS results. Attention was then turned to the right coronary artery which was engaged with a 6F JR4 guide catheter. A Runthrough wire was negotiated into the distal rPDA. The lesion was pre-dilated with a 3.5 x 10mm balloon. IVUS was used to assess size. The mid RCA was stented with a 4.0 x 18mm Neal Garden EVELIO; post dilated with a 4.5 x 8mm NC with excellent angiographic results. Intracoronary NTG was administered throughout the procedure. Coronary wire and guide-catheter were removed under fluoroscopy. Pre-procedure - ISAI 3 flow Post-procedure - ISAI 3 flow No angiographic complications identified. Assessment: Successful IVUS guided PCI to the mid LAD with a 4.0 x 15mm Colstrip Garden EVELIO; post dilated with 4.5 x 8mm NC proximally with excellent angiographic and IVUS results. Successful IVUS guided PCI to the mid RCA with a 4.0 x 18mm Neal Garden EVELIO; post dilated with a 4.5 x 8mm NC proximally with excellent angiographic results. Post Operative Condition: Stable No significant blood loss Disposition: Home Plan: DAPT for 1 year followed by ASA indefinitely. The above findings were discussed with the referring physician. Continue aggressive medical therapy and risk factor modification. Jovany Reyes Interventional Cardiology
== END 2025-01-15 15:30 | disposition home or self-care (01) ==
PROVIDERS: PCP Family Medicine; Visit Provider Internal Medicine
PROC: 4A023N7 Measurement of Cardiac Sampling and Pressure, Left Heart, Percutaneous Approach (ICD-10-PCS; CPT 93452; principal; 2025-01-15 08:30)
PROC: (CPT 92979; 2025-01-15 08:30)
DX: I25.10 Atherosclerotic heart disease of native coronary artery without angina pectoris (principal); R94.39 Abnormal result of other cardiovascular function study; E66.9 Obesity, unspecified; Z68.29 Body mass index [BMI] 29.0-29.9, adult
CPT/HCPCS: 36415; 80048; 85025; 92978; 92979; 93458; A9270; C1725; C1753; C1769; C1874; C1887; C1894; C9600; J0461; J1644; J2003; J2250; J2305; J3010; J7040